=== PATIENT | female | born 1970 | race Caucasian/White ===

== ENCOUNTER 2016-10-15 12:54 | Emergency (ER) | payer OTHER ==
[~2016-10-15 12:54] MED LIST: METHADONE PO; PEN-VEE K PO
== END 2016-10-15 12:56 | disposition home or self-care (01) ==
LOC: SED 12:54
DX: B02.9 Zoster without complications (principal); F17.210 Nicotine dependence, cigarettes, uncomplicated; Z98.51 Tubal ligation status
CPT/HCPCS: 99282